=== PATIENT | female | born 1990 | race Caucasian/White ===

== ENCOUNTER 2019-06-30 02:40 | Observation (INO) | payer BC ==
[2019-06-30] MEDS ORDERED: Lactated Ringers 1,000 ML IV ONE (03:07)
[2019-06-30] MEDS ORDERED: Betamethasone Acetate/Betamethasone Sod Phosphate 30 MG/5 ML MDV IM SCH ×2 (03:30→08:15)
--- NOTE | 2019-06-30 04:27 | PCM.LDHP ---
L&D History of Present Illness - General Date of Service: 06/30/19 Admit Problem/Dx: Patient Status Order with Admit Dx/Problem 06/30/19 02:52 Patient Status [ADT] Routine Admission Diagnosis/Problem Admission Diagnosis/Problem - History of Present Illness Introduction:: 29yo at 31w5d presenting with vaginal bleeding. complicated by posterior placenta previa, otherwise has been normal. Patient reports waking up around midnight and noticed small amount of dark blood, mostly when she wiped , did not soak a pad. She is also feeling mild cramping in her lower abdomen. + movement. She did not have any bleeding prior to today. She is otherwise healthy, does not have any medical issues. - Related Data Allergies/Adverse Reactions: Allergies Allergy/AdvReac Type Severity Reaction Status Date / Time No Known Allergies Allergy Verified 06/30/19 02:54 H&P Review of Systems - Review of Systems: Review Of Systems: See Below General: Reports: No Symptoms HEENT: Reports: No Symptoms Pulmonary: Reports: No Symptoms Cardiovascular: Reports: No Symptoms Gastrointestinal: Reports: No Symptoms Genitourinary: Reports: Pain Musculoskeletal: Reports: No Symptoms Skin: Reports: No Symptoms Psychiatric: Reports: No Symptoms Neurological: Reports: No Symptoms Hematologic/Lymphatic: Reports: No Symptoms Immunologic: Reports: No Symptoms L&D Exam - Exam Exam: See Below - Vital Signs Weight: 127 lb - OB Specific Contraction Frequency (min): Irritable on toco Contraction Intensity: Mild Movement: Active Heart Tones per Min: 120 Heart Rate (FHR) Variability: Moderate (6-25 bmp) - Exam General: Alert, Oriented, Cooperative Neck: Supple, Trachea Midline Lungs: Normal Respiratory Effort GI/Abdominal Exam: Soft, Non-Tender, No Distention Genitourinary: Normal external exam, Other (Small amount of dark brown blood) Back Exam: Normal Inspection Extremities: Normal Inspection, Normal Range of Motion, Non-Tender, No Pedal Edema Skin: Warm, Intact Psychiatric: Alert, Normal Affect, Normal Mood - Patient Data Lab Results Last 24 hrs: Laboratory Results - last 24 hr 06/30/19 06/30/19 06/30/19 Range/Units 03:44 03:44 03:44 WBC 12.71 H (4.0-11.0) K/uL RBC 3.82 L (4.30-5.90) M/uL Hgb 11.7 L (12.0-16.0) g/dL Hct 35.0 L (36.0-46.0) % MCV 91.6 (80.0-98.0) fL MCH 30.6 (27.0-32.0) pg MCHC 33.4 (31.0-37.0) g/dL RDW Std Deviation 43.0 (28.0-62.0) fl RDW Coeff of Kyle 13 (11.0-15.0) % Plt Count 224 (150-400) K/uL MPV 11.00 (7.40-12.00) fL Neut % (Auto) 63.7 (48.0-80.0) % Lymph % (Auto) 23.2 (16.0-40.0) % [place] % (Auto) 10.1 (0.0-15.0) % Eos % (Auto) 2.6 (0.0-7.0) % Baso % (Auto) 0.4 (0.0-1.5) % Neut # (Auto) 8.1 H (1.4-5.7) K/uL Lymph # (Auto) 3.0 H (0.6-2.4) K/uL [place] # (Auto) 1.3 H (0.0-0.8) K/uL Eos # (Auto) 0.3 (0.0-0.7) K/uL Baso # (Auto) 0.1 (0.0-0.1) K/uL Nucleated RBC % 0.0 /100WBC Nucleated RBCs # 0 K/uL INR 0.87 APTT 23.5 (18.6-31.3) SEC Fibrinogen 440 H (215-411) mg/dL Result Diagrams: 06/30/19 03:44 Problem List Initiated/Reviewed/Updated: Yes Orders Last 24hrs: Active Orders 24 hr Category Date Time Status Patient Status [ADT] Routine ADT 06/30/19 02:52 Active Non Stress Test [RC] PER UNIT ROUTINE Care 06/30/19 02:52 Active Up ad Molly [RC] ASDIRECTED Care 06/30/19 02:52 Active Vaginal Exam [RC] Click to Edit Care 06/30/19 02:52 Active Vital Signs [RC] PER UNIT ROUTINE Care 06/30/19 02:52 Active NPO [Nothing Per Oral Diet] [DIET] Diet 06/30/19 Breakfast Active TYPE AND SCREEN [BBK] Stat Lab 06/30/19 03:44 Received Betamet Acet/Betamet Na Phos [[place]estone Soluspan 6 MG/ Med 06/30/19 03:30 Active ML] 12 mg IM Q24H Resuscitation Status Routine Resus Stat 06/30/19 02:52 Ordered Medication Orders Betamethasone Acet/Betameth SodPhos ([place] Soluspan 6 Mg/Ml) 12 mg IM Q24H ANDIE Stop: 07/01/19 03:31 Last Admin: 06/30/19 03:50 Dose: 12 mg Assessment/Plan Comment:: 29yo @ 31w5d with placenta previa presenting with first episode of vaginal bleeding. Currently bleeding is light, reassuring maternal and status. - small amount of dark blood on SSE, no active bleeding - Cat 1 tracing, toco irritable - NPO, will bolus 1L of LR - CBC, T&S, PT/PTT/INR and fibrinogen - give course of betamethasone - will monitor closely, if bleeding is persistent or signs of maternal compromise, will transfer patient to high level facility
[2019-06-30] MEDS ORDERED: Magnesium Sulfate/Water 4 GM in Premix Bag 1 BAG IV ONE (08:03)
[2019-06-30] MEDS ORDERED: Calcium Gluconate 10% 1 GM/10 ML SDV IVPUSH PRN (08:03)
[2019-06-30] MEDS ORDERED: Magnesium Sulfate/Water 2 GM in Premix Bag 1 BAG IV ONE (08:08)
[2019-06-30] MEDS ORDERED: Magnesium Sulfate/Water 20 GM/500 ML BAG ONE (08:14)
[2019-06-30] MEDS ORDERED: Magnesium Sulfate/Water 20 GM/500 ML BAG IV SCH (08:15)
== END 2019-06-30 08:55 ==
LOC: MW.OBCHECK 02:40 → MW.OB 02:41 → MW.OBCHECK 03:44
PROVIDERS: ADMIT Obstetrics & Gynecology; ATTEND Obstetrics & Gynecology
DX: O44.13 Complete placenta previa with hemorrhage, third trimester (principal); Z3A.31 31 weeks gestation of pregnancy
CPT/HCPCS: 36415; 59025; 85025; 85384; 85610; 85730; 86850; 86900; 86901; 96365; 96372; G0378; J0702; J3475; J7120